=== PATIENT | male | born 1945 | race Caucasian/White ===

== ENCOUNTER → 2020-12-23 | Outpatient (CLI) | payer MEDICARE | LOC: M RAD 15:23 | PROVIDERS: ATTEND Internal Medicine Nephrology | DX: N18.4 Chronic kidney disease, stage 4 (severe) (principal) ==

== ENCOUNTER → 2021-01-04 | Outpatient (CLI) | payer MEDICARE ==
[~2021-01-04] MED LIST: ISOVUE-370 76% 100ML VIAL As Ordered ONE
--- NOTE | 2021-01-04 10:24 | REP ---
INDICATION: NEOPLASM LT KIDNEY. COMPARISON: Correlation with renal ultrasound dated 12/23/2020 TECHNIQUE: Axial contrast-enhanced images from the lung bases to the pubic symphysis using 100 cc Isovue 370 intravenous contrast material. Precontrast, arterial phase, and 5 minutes delayed phase images of the abdomen obtained along with coronal and sagittal reformations.. This CT examination was performed using the following dose reduction techniques: Automated exposure control, adjustment of mA and/or kv according to the patient's size, and the use of iterative reconstruction technique. FINDINGS: It appears to be that the left kidney has been completely replaced by large innumerable cysts while the right kidney includes multiple cysts but remains otherwise normal in appearance and enhancement. Findings suggest polycystic kidney disease. There is no evidence for hydronephrosis or obvious significant mass involving the kidneys. Liver, spleen, pancreas, gallbladder, and left adrenal gland are normal. 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 The enteric system is without obstruction or acute inflammatory process. Colonic diverticula noted without acute diverticulitis. Pelvis demonstrates heterogeneous enlarged prostate gland with mass effect on the base of the bladder. No ascites. No free air. No adenopathy. Abdominal aorta without aneurysm or dissection. Musculoskeletal structures are intact. Lung bases are clear. IMPRESSION: 1. Findings consistent with polycystic kidney syndrome with essentially complete replacement of the left kidney by multiple large cysts. The right kidney demonstrates cysts but remains otherwise normal in appearance. No urinary tract mass lesion identified. 2. Enlarged prostate gland with mass effect on the base of the bladder. 3. Diverticula without acute diverticulitis. <Electronically signed by Jaden Davis > 01/04/21 1029
== END ==
LOC: M RAD 07:58
PROVIDERS: ATTEND Internal Medicine Nephrology
DX: D41.02 Neoplasm of uncertain behavior of left kidney (principal); N28.1 Cyst of kidney, acquired; N18.4 Chronic kidney disease, stage 4 (severe)
CPT/HCPCS: 74178; Q9967

== ENCOUNTER → 2022-12-12 | Outpatient (REF) | payer MEDICARE ==
[2022-12-12 18:03] LABS: CREATININE,RANDOM URINE 64.1 MG/DL
[2022-12-12 18:10] LABS: TOTAL PROTEIN,RANDOM URINE 135.1 MG/DL (0.0-14.0)
== END ==
LOC: M LAB REF 17:01
PROVIDERS: ATTEND Nurse Practitioner Family
DX: N18.4 Chronic kidney disease, stage 4 (severe) (principal)